=== PATIENT | female | born 1985 | race Caucasian/White ===

== ENCOUNTER 2018-10-05 17:40 | Emergency (ER) | payer BC, OTHER ==
[2018-10-05] MEDS ORDERED: ONDANSETRON 4 MG/2 ML VIAL IVPUSH ONE (17:56)
[2018-10-05] MEDS ORDERED: SODIUM CHLORIDE 1,000 ML IV STA (17:56)
--- NOTE | 2018-10-05 17:56 | PDOC ---
Rapid Medical Evaluation Medical Evaluation: Allergies Allergy/AdvReac Type Severity Reaction Status Date / Time No Known Allergies Allergy Verified 06/13/15 01:47 I have performed a brief in-person evaluation of this patient. The patient presents with a chief complaint of: C/O NBNB emesis and watery diarrhea since 11 AM; states daughter was sick with same thing; also c/o cramping of extremities Pertinent physical exam findings: Dry mucous membranes, mild generalized abd TTP I have ordered the following: Labs, meds, IVF The patient will proceed to the ED for further evaluation. 10/05/18 17:54 Discharge Disposition - Discharge Dispostion Condition at time of disposition: Stable - Referrals - Patient Instructions - Post Discharge Activity
[2018-10-05 18:20] VITALS: BP 143/83; PULSE 89; TEMP 97.8; BMI 23.0
--- NOTE | 2018-10-05 19:31 | PDOC ---
History of Present Illness - General Chief Complaint: Vomiting/Diarrhea Stated Complaint: VOMIT Time Seen by Provider: 10/05/18 17:54 History Source: Patient Exam Limitations: No Limitations - History of Present Illness Travel History: No Initial Comments: 10/05/18 19:11 33-year-old female with no past medical history presents to the ED with sudden onset of nausea vomiting diarrhea since 11 AM. Patient also complaining of lower abdominal cramping and chills along with weakness and poor solid intake. Patient states that her 3-year-old daughter with similar symptoms 2 days prior when she was tending to during her illness. Patient denies recent travel, recent illness irregular menses, urinary complaints, or bloody stool Timing/Duration: reports: constant Quality: reports: moderate, cramping Abdominal Pain Onset Location: reports: generalized abdomen Pain Radiation: reports: no radiation Activities at Onset: reports: none Aggravating Factors: improves with: None Alleviating Factors: improves with: None Past History - Travel Traveled outside of the country in the last 30 days: No Close contact w/someone who was outside of country & ill: No - Past Medical History Allergies/Adverse Reactions: Allergies Allergy/AdvReac Type Severity Reaction Status Date / Time No Known Allergies Allergy Verified 06/13/15 01:47 Home Medications: Ambulatory Orders Ferrous Sulfate 1 cap PO DAILY 06/13/15 Tablet 1 cap PO DAILY 06/13/15 COPD: No CHF: No Hypercholesterolemia: No - Surgical History Appendectomy: No Gastric Stapling: No - Immunization History Immunization Up to Date: No - Suicide/Smoking/Psychosocial Hx Smoking History: Never smoked Have you smoked in the past 12 months: No Information on smoking cessation initiated: No Hx Alcohol Use: No Drug/Substance Use Hx: No Patient Lives Alone: No Lives with/in: spouse/SO Review of Systems - Review of Systems Able to Perform ROS?: Yes Constitutional: Yes: Chills, Weakness HEENTM: No: Symptoms Reported Respiratory: No: Symptoms reported Cardiac (ROS): No: Symptoms Reported ABD/GI: Yes: Diarrhea, Nausea, Poor Appetite, Vomiting, Abdominal cramping. No : Poor Fluid Intake : No: Symptoms Reported Musculoskeletal: Yes: Symptoms Reported Integumentary: No: Symptoms Reported Neurological: No: Symptoms reported *Physical Exam - Vital Signs Last Vital Signs Temp Pulse Resp BP Pulse Ox 97.8 F 89 16 143/83 98 10/05/18 17:54 10/05/18 17:54 10/05/18 17:54 10/05/18 17:54 10/05/18 17:54 - Physical Exam General Appearance: Yes: Nourished, Appropriately Dressed. No: Apparent Distress HEENT: positive: EOMI, PADMINI, TMs Normal, Pharynx Normal. negative: Pale Conjunctivae Neck: positive: Supple Respiratory/Chest: positive: Lungs Clear, Normal Breath Sounds. negative: Respiratory Distress, Accessory Muscle Use Cardiovascular: positive: Regular Rhythm, Regular Rate. negative: Murmur Gastrointestinal/Abdominal: positive: Soft, Tenderness ( right lower quad, rt suprapubic, negative psoas) Musculoskeletal: negative: Normal Inspection Extremity: positive: Normal Capillary Refill, Normal Range of Motion Integumentary: positive: Normal Color, Warm, Moist Neurologic: positive: Normal Mood/Affect, Motor Strength 5/5 (ambulatory) Moderate Sedation - Procedure Monitoring Vital Signs: Procedure Monitoring Vital Signs Temperature 97.8 F 10/05/18 17:54 Pulse Rate 89 10/05/18 17:54 Respiratory Rate 16 10/05/18 17:54 Blood Pressure 143/83 10/05/18 17:54 O2 Sat by Pulse Oximetry (%) 98 10/05/18 17:54 ED Treatment Course - LABORATORY CBC & Chemistry Diagram: 10/05/18 18:50 10/05/18 18:59 - Medications Given in the ED: ED Medications Discontinued Medications Generic Name Dose Route Start Last Admin Trade Name Freq PRN Reason Stop Dose Admin Sodium Chloride 1,000 mls @ 1,000 mls/hr 10/05/18 17:56 10/05/18 19:13 Normal Saline - IV 10/05/18 18:55 1,000 mls/hr ASDIR STA Administration Ondansetron HCl 4 mg 10/05/18 17:56 10/05/18 19:13 Zofran Injection IVPUSH 10/05/18 17:57 4 mg ONCE ONE Administration Medical Decision Making - Medical Decision Making 10/05/18 19:28 CC: n/v/d/ abd pain since 11am Exam: mild lower abd tenderness Plan: labs, ua, if, zofran, iv tylenol 10/05/18 20:12 Laboratory Tests 10/05/18 10/05/18 18:50 18:59 WBC 20.5 H Neutrophils % 93.6 H Lymphocytes % 2.6 L Monocytes % 3.5 L Sodium 137 Potassium 4.5 Chloride 102 Carbon Dioxide 22 Anion Gap 13 BUN 15 Creatinine 1.0 Creat Clearance w eGFR > 60 Random Glucose 111 H Calcium 10.2 H Magnesium 1.9 Total Bilirubin 0.6 AST 81 H ALT 62 H Alkaline Phosphatase 61 Total Protein 9.8 H Albumin 5.2 H Lipase 89 10/05/18 20:[address] with IV contrast ordered to rule out appendicitis./Colitis, infectious process, 10/05/18 20:54 Laboratory Tests 10/05/18 18:59 Serum , Qual Negative 10/05/18 21:26 Laboratory Tests 10/05/18 20:55 Urine Protein 2+ H Urine Ketones Trace H Urine Blood 2+ H Ur Leukocyte Esterase Negative Urine WBC (Auto) 2 Urine RBC (Auto) 35 Ur Epithelial Cells Few Urine Bacteria Rare Hyaline Casts 29 Urine Mucus Moderate pt denies menstruation. LMP 09/20/18. U cx sent. no urinary complaints *DC/Admit/Observation/Transfer - Discharge Dispostion Condition at time of disposition: Improved - Referrals Referrals: Neftali Reynoso MD [Primary Care Provider] - - Patient Instructions - Post Discharge Activity
[2018-10-05] MEDS ORDERED: ACETAMINOPHEN 1000 MG/100 ML VIAL (NON FORMULARY) IVPB ONE (19:43)
--- NOTE | 2018-10-05 19:43 | PDOC ---
*Physical Exam - Vital Signs Last Vital Signs Temp Pulse Resp BP Pulse Ox 97.8 F 89 16 143/83 98 10/05/18 17:54 10/05/18 17:54 10/05/18 17:54 10/05/18 17:54 10/05/18 17:54 ED Treatment Course - LABORATORY CBC & Chemistry Diagram: 10/05/18 18:50 10/05/18 18:59 - Medications Given in the ED: ED Medications Discontinued Medications Generic Name Dose Route Start Last Admin Trade Name Iris PRN Reason Stop Dose Admin Sodium Chloride 1,000 mls @ 1,000 mls/hr 10/05/18 17:56 10/05/18 19:13 Normal Saline - IV 10/05/18 18:55 1,000 mls/hr ASDIR STA Administration Ondansetron HCl 4 mg 10/05/18 17:56 10/05/18 19:13 Zofran Injection IVPUSH 10/05/18 17:57 4 mg ONCE ONE Administration Medical Decision Making - Medical Decision Making 10/05/18 19:42 Patient seen by the advanced practice provider under my direct supervision. Ancillary testing reviewed as necessary. I agree with plan as outlined by the advanced practice provider. *DC/Admit/Observation/Transfer Diagnosis at time of Disposition: Gastroenteritis - Discharge Dispostion Disposition: HOME Condition at time of disposition: Improved - Referrals Referrals: Neftali Reynoso MD [Primary Care Provider] - 24 hours - Patient Instructions Printed Discharge Instructions: Gastroenteritis Diet Additional Instructions: drink plenty of fluids/ gatorade start a BRAT ( bananas, rice apples toast) follow up with your doctor return to the ER if symptoms worsen Additional Instructions: * Please call your personal physician to report your Emergency Department visit and to report your progress, if any. * If there is no improvement in symptoms in 2 days call your physician. * Return to the Emergency Department for any worsening symptoms. - Post Discharge Activity Forms/Work/School Notes: Back to Work
[2018-10-05 19:47] LABS: BASO % 0.1 % (0-2.0); EOS % 0.2 % (0-4.5); HEMATOCRIT 44.7 % (32.4-45.2); HEMOGLOBIN 15.1 GM/dL (10.7-15.3); LYMPH % 2.6 % (8-40); MCH 29.9 pg (25.7-33.7); MCHC 33.7 g/dl (32.0-36.0); MEAN CELL VOLUME 88.6 fl (80-96); MEAN PLT VOLUME 12.2 fl (7.5-11.1); MONO % 3.5 % (3.8-10.2); NEUT % 93.6 % (42.8-82.8); PLATELET COUNT 301 K/MM3 (134-434); RBC 5.05 M/mm3 (3.60-5.2); RDW 13.3 % (11.6-15.6); WHITE BLOOD COUNT 20.5 K/mm3 (4.0-10.0)
[2018-10-05] MEDS ORDERED: ACETAMINOPHEN INJECTION 100 ML IVPB ONE (19:48)
[2018-10-05 20:10] LABS: ANION GAP 13 MMOL/L (8-16); BLOOD UREA NITROGEN 15 mg/dL (7-18); CALCIUM 10.2 mg/dL (8.5-10.1); CHLORIDE 102 mmol/L (98-107); CO2 22 mmol/L (21-32); GLUCOSE,RANDOM 111 mg/dL (74-106); POTASSIUM 4.5 mmol/L (3.5-5.1); SODIUM 137 mmol/L (136-145)
[2018-10-05 20:11] LABS: ALBUMIN 5.2 g/dl (3.4-5.0); ALK PHOS 61 U/L (45-117); BILIRUBIN,TOTAL 0.6 mg/dL (0.2-1); LIPASE 89 U/L (73-393); MAGNESIUM 1.9 mg/dL (1.8-2.4); SGOT/AST 81 U/L (15-37); SGPT/ALT 62 U/L (13-61); TOT PROT 9.8 g/dl (6.4-8.2)
[2018-10-05 20:57] LABS: PLATELET ESTIMATE ADEQUATE
[2018-10-05 21:13] LABS: URINE APPEARANCE SLCLOUDY; URINE BILIRUBIN NEGATIVE (<2.0 mg/dL); URINE COLOR YELLOW; URINE GLUCOSE (UA) NEGATIVE (NEGATIVE); URINE KETONE TRACE (NEGATIVE); URINE LEUK ESTERASE NEGATIVE (NEGATIVE); URINE NITRITE NEGATIVE (NEGATIVE); URINE PROTEIN 2+ (NEGATIVE); URINE UROBILINOGEN NEGATIVE mg/dL (0.2-1.0)
[2018-10-05 21:21] LABS: EPI CELLS FEW /HPF (FEW); URINE BACTERIA RARE /hpf (NONE SEEN); URINE HYALINE CAST 29 /lpf; URINE MUCUS MODERATE
--- NOTE | 2018-10-05 22:18 | PDOC ---
*Physical Exam - Vital Signs Last Vital Signs Temp Pulse Resp BP Pulse Ox 97.8 F 89 16 143/83 98 10/05/18 17:54 10/05/18 17:54 10/05/18 17:54 10/05/18 17:54 10/05/18 17:54 - Physical Exam General Appearance: Yes: Appropriately Dressed Respiratory/Chest: positive: Normal Breath Sounds Cardiovascular: positive: Regular Rhythm, Regular Rate Gastrointestinal/Abdominal: positive: Normal Bowel Sounds. negative: Tender ( no abdominal tenderness) Extremity: positive: Normal Capillary Refill, Normal Inspection, Normal Range of Motion Integumentary: positive: Normal Color, Dry, Warm Neurologic: positive: Fully Oriented, Alert, Normal Mood/Affect ED Treatment Course - LABORATORY CBC & Chemistry Diagram: 10/05/18 18:50 10/05/18 18:59 - ADDITIONAL ORDERS Additional order review: Laboratory Results 10/05/18 10/05/18 10/05/18 20:55 18:59 18:59 Sodium 137 Potassium 4.5 Chloride 102 Carbon Dioxide 22 Anion Gap 13 BUN 15 Creatinine 1.0 Creat Clearance w eGFR > 60 Random Glucose 111 H Calcium 10.2 H Magnesium 1.9 Total Bilirubin 0.6 AST 81 H ALT 62 H Alkaline Phosphatase 61 Total Protein 9.8 H Albumin 5.2 H Lipase 89 Serum , Qual Negative Urine Color Yellow Urine Appearance Slcloudy Urine pH 5.0 D Ur Specific Mccaskill 1.029 Urine Protein 2+ H Urine Glucose (UA) Negative Urine Ketones Trace H Urine Blood 2+ H Urine Nitrite Negative Urine Bilirubin Negative Urine Urobilinogen Negative Ur Leukocyte Esterase Negative Urine WBC (Auto) 2 Urine RBC (Auto) 35 Ur Epithelial Cells Few Urine Bacteria Rare Hyaline Casts 29 Urine Mucus Moderate 10/05/18 18:50 RBC 5.05 MCV 88.6 MCHC 33.7 RDW 13.3 MPV 12.2 H Neutrophils % 93.6 H Lymphocytes % 2.6 L Monocytes % 3.5 L Eosinophils % 0.2 Basophils % 0.1 - Medications Given in the ED: ED Medications Discontinued Medications Generic Name Dose Route Start Last Admin Trade Name Freq PRN Reason Stop Dose Admin Acetaminophen 1,000 mg 10/05/18 19:43 10/05/18 20:40 Ofirmev Injection - IVPB 10/05/18 19:44 1,000 mg ONCE ONE Administration Sodium Chloride 1,000 mls @ 1,000 mls/hr 10/05/18 17:56 10/05/18 19:13 Normal Saline - IV 10/05/18 18:55 1,000 mls/hr ASDIR STA Administration Ondansetron HCl 4 mg 10/05/18 17:56 10/05/18 19:13 Zofran Injection IVPUSH 10/05/18 17:57 4 mg ONCE ONE Administration Medical Decision Making - Medical Decision Making 10/05/18 23:11 patient is feeling better walking around would like to go home. patient has diarrhea no abdominal pain. tolerated PO water. CTAP: no signs of acute appendicitis. appendix is not visualized. patient's daughter with same symptoms ( vomiting and diarrhea) now improved. likley gastroenteritis. will d/c home with strict return precautions. Patient verbalized understanding to return for any worsening symptoms. 10/07/18 14:57 called today for clinical update. no answer on phone no VM. *DC/Admit/Observation/Transfer Diagnosis at time of Disposition: Gastroenteritis - Discharge Dispostion Disposition: HOME Condition at time of disposition: Improved - Referrals Referrals: Neftali Reynoso MD [Primary Care Provider] - 24 hours - Patient Instructions Printed Discharge Instructions: Gastroenteritis Diet Additional Instructions: drink plenty of fluids/ gatorade start a BRAT ( bananas, rice apples toast) follow up with your doctor return to the ER if symptoms worsen Additional Instructions: * Please call your personal physician to report your Emergency Department visit and to report your progress, if any. * If there is no improvement in symptoms in 2 days call your physician. * Return to the Emergency Department for any worsening symptoms. - Post Discharge Activity Forms/Work/School Notes: Back to Work
== END 2018-10-05 23:23 | disposition home or self-care (01) ==
LOC: JER 17:40
PROC: 3E033GC Introduction of Other Therapeutic Substance into Peripheral Vein, Percutaneous Approach (ICD-10-PCS; principal; 2018-10-05)
PROC: 3E033NZ Introduction of Analgesics, Hypnotics, Sedatives into Peripheral Vein, Percutaneous Approach (ICD-10-PCS; 2018-10-05)
DX: K52.9 Noninfective gastroenteritis and colitis, unspecified (principal)
CPT/HCPCS: 36415; 74177-TC; 80053; 81003; 81015; 83690; 83735; 84703; 85025; 87086; 99282-25; J0131; J7030